=== PATIENT | female | born 1945 | race Caucasian/White ===

== ENCOUNTER 2018-05-04 07:27 | Day surgery (SDC) | payer MEDICARE, BC ==
[2018-05-04] MEDS ORDERED: Lactated Ringers 1,000 ML IV SCH (08:15)
--- NOTE | 2018-05-04 08:24 | PCM.PREANE ---
Preanesthetic Assessment - Anesthesia/Transfusion/Family Hx Anesthesia History: Prior Anesthesia Without Reaction Family History of Anesthesia Reaction: No Transfusion History: No Prior Transfusion(s) Intubation History: Unknown - Review of Systems General: No Symptoms Pulmonary: No Symptoms Cardiovascular: No Symptoms Gastrointestinal: No Symptoms Neurological: No Symptoms Other: Reports: None - Physical Assessment O2 Sat by Pulse Oximetry: 99 Respiratory Rate: 16 Vital Signs: Last Vital Signs Temp 35.6 C 05/04/18 07:46 Pulse 71 05/04/18 07:46 Resp 16 05/04/18 07:46 BP 144/82 H 05/04/18 07:46 Pulse Ox 99 05/04/18 07:46 Height: 1.68 m Weight: 67.585 kg ASA Class: 3 Mental Status: Alert & Oriented x3 Airway Class: Mallampati = 2 Dentition: Reports: Normal Dentition Thyro-Mental Finger Breadths: 3 Mouth Opening Finger Breadths: 3 ROM/Head Extension: Limited/Partial Lungs: Clear to Auscultation, Normal Respiratory Effort Cardiovascular: Regular Rate, Regular Rhythm - Allergies Allergies/Adverse Reactions: Allergies Allergy/AdvReac Type Severity Reaction Status Date / Time quinapril HCl [From Accupril] Allergy Cannot Verified 04/29/18 08:32 Remember - Blood Blood Available: No - Anesthesia Plan Pre-Op Medication Ordered: None - Acknowledgements Anesthesia Type Planned: General Anesthesia Pt an Appropriate Candidate for the Planned Anesthesia: Yes Alternatives and Risks of Anesthesia Discussed w Pt/Guardian: Yes Pt/Guardian Understands and Agrees with Anesthesia Plan: Yes PreAnesthesia Questionnaire HEENT History: Reports: Glaucoma, Impaired Vision, Macular Degeneration, Other ( See Below) Other HEENT History: uses reading glasses, glaucoma rt eye, macular degeneration left eye Cardiovascular History: Reports: High Cholesterol, Hypertension Respiratory History: Reports: None Gastrointestinal History: Reports: None Genitourinary History: Reports: Other (See Below) (mild renal insufficiency) RADIOLOGIC TECHNOLOGY INSTRUCTOR History: Reports: None Musculoskeletal History: Reports: Arthritis, Fracture Other Musculoskeletal History: hx fx rt knee Neurological History: Reports: MS Psychiatric History: Reports: None Endocrine/Metabolic History: Reports: None, Other (See Below) (elevated glucose levels) Hematologic History: Reports: None Immunologic History: Reports: None Oncologic (Cancer) History: Reports: None Dermatologic History: Reports: Other (See Below) Other Dermatologic History: skin tags, seborrheic keratosis, onchomycosis - Past Surgical History Head Surgeries/Procedures: Reports: None HEENT Surgical History: Reports: Cataract Surgery, Tonsillectomy Cardiovascular Surgical History: Reports: None Respiratory Surgical History: Reports: None GI Surgical History: Reports: EGD Female Surgical History: Reports: Hysterectomy, Oophorectomy Male Surgical History: Endocrine Surgical History: Reports: None Musculoskeletal Surgical History: Reports: Carpal Tunnel Other Musculoskeletal Surgeries/Procedures:: Lt carpal tunnel release 04/27/18 under local Oncologic Surgical History: Reports: None - SUBSTANCE USE Smoking Status *Q: Never Smoker Recreational Drug Use History: No - HOME MEDS Home Medications: Home Meds Amitriptyline [Elavil] 10 mg PO BEDTIME 11/06/15 [History] Aspirin [Children's Aspirin] 81 mg PO DAILY 11/06/15 [History] Calcium Carbonate/Vitamin D3 [Calcium 500-Vit D3 200 Tablet] 0.5 tab PO DAILY [History] Gabapentin [Neurontin] 300 mg PO QID 11/06/15 [History] Beta-Carotene(A) W-C & E/Min [Vision Vitamins] 1 tab PO BID 04/27/18 [History] Cholecalciferol (Vitamin D3) [Vitamin D3] 1,000 unit PO DAILY 04/27/18 [History] Cyanocobalamin (Vitamin B-12) [Vitamin B-12] 1,000 mcg PO DAILY 04/27/18 [ History] Fluticasone Propionate [Flonase] 1 - 2 spray NASBOTH BID PRN 04/27/18 [History] Ibuprofen 800 mg PO TID PRN 04/27/18 [History] Lifitegrast [Xiidra] 1 drop EYEBOTH BID 04/27/18 [History] Potassium Chloride 20 meq PO DAILY 04/27/18 [History] Triamterene/Hydrochlorothiazid [Triamterene-HCTZ 37.5-25 MG] 1 cap PO DAILY 05/07 [History] atorvaSTATin [Lipitor] 10 mg PO DAILY 04/27/18 [History] Bio-Tears 1 tab PO BID 04/29/18 [History] - CURRENT (IN HOUSE) MEDS Current Meds: Current Medications Lactated Ringer's (Ringers, Lactated) 1,000 mls @ 125 mls/hr IV ASDIRECTED TASHIA Last Admin: 05/04/18 08:00 Dose: 125 mls/hr
--- NOTE | 2018-05-04 08:39 | PCM.HPR ---
H & P Addendum review - H & P Addendum Review Date of Original H & P: 04/21/18 Date Reviewed: 05/04/18 Time Reviewed: 08:00 Patient was Examined: No Changes
--- NOTE | 2018-05-04 08:41 | PCM.OPNOTE ---
- General Post-Op/Procedure Note Date of Surgery/Procedure: 05/04/18 Condition: Good Free Text/Narrative:: Pre operative Diagnosis: Otitis media with effusion, hearing loss, imbalance Post operative Diagnosis: Otitis media with effusion, hearing loss, imbalance Procedure: Bilateral Myringotomy with Tympanostomy tubes Surgeon: Dana Morales MD Anesthesia: General Anesthesiologist:Serg ARCE Date of procedure: 05/04/2018 Indications: Otitis media with effusion, hearing loss, imbalance Findings: Right ME - serous effusion; L - TM intact , ME - normal Operation Details: An informed consent for the procedure was obtained from parents. A time out was performed and the patient was brought back to the operating room and laid supine on the operating room table. Anesthesia was administered with an LMA. The right ear was addressed first. Cerumen was cleared from the external auditory canal. An anterior inferior myringotomy incision was made in the pars tensa. Findings are as described above. Middle ear effusion was suctioned clear. Middle ear was irrigated with saline. A URIBE tympanostomy tube was placed with an alligator forceps. Ciprodex ear drops were instilled. A cotton wool wall was placed in the monika. The left ear was addressed. Cerumen was cleared from the external auditory canal. Findings are as described above. Specimens: None IV fluids: None Disposition: PACU for recovery Follow up: In 1 week
[2018-05-04] MEDS ORDERED: Lidocaine 2% 5 ML SDV ONE (08:44)
[2018-05-04] MEDS ORDERED: fentaNYL 100 MCG/2 ML SDV ONE (08:45)
[2018-05-04] MEDS ORDERED: Midazolam 1 MG/ML 2 ML SDV ONE (08:45)
[2018-05-04] MEDS ORDERED: Propofol 200 MG/20 ML SDV ONE (08:45)
[2018-05-04] MEDS ORDERED: EPINEPHrine 1 MG/ML SDV ONE ×2 (09:39→09:42)
[2018-05-04] MEDS ORDERED: fentaNYL 100 MCG/2 ML SDV IVPUSH PRN (09:40)
[2018-05-04] MEDS ORDERED: Ciprofloxacin/Dexamethasone 0.3-0.1% Otic Susp 7.5 ML Bottle ONE (09:40)
--- NOTE | 2018-05-04 09:55 | PCM.POSTAN ---
POST ANESTHESIA ASSESSMENT - MENTAL STATUS Mental Status: Alert, Oriented - RESPIRATORY Respiratory Status: Respiratory Rate WNL, Airway Patent, O2 Saturation Stable - CARDIOVASCULAR CV Status: Pulse Rate WNL, Blood Pressure Stable - GASTROINTESTINAL GI Status: No Symptoms - PAIN Pain Score: 0 - POST OP HYDRATION Hydration Status: Adequate & Stable
--- NOTE | 2018-05-04 10:21 | PCM48HPAN ---
Post Anesthesia Note - EVALUATION WITHIN 48HRS OF ANESTHETIC Vital Signs in Normal Range: Yes Patient Participated in Evaluation: Yes Respiratory Function Stable: Yes Airway Patent: Yes Cardiovascular Function Stable: Yes Hydration Status Stable: Yes Pain Control Satisfactory: Yes Nausea and Vomiting Control Satisfactory: Yes Mental Status Recovered: Yes Resp Rate: 9 - COMMENTS/OBSERVATIONS Free Text/Narrative:: no anesthesia problems
[2018-05-04 10:34] VITALS: BP 167/73
== END 2018-05-04 10:44 | disposition home or self-care (01) ==
LOC: MW.SDS 07:27
PROVIDERS: ATTEND Otolaryngology
DX: H65.91 Unspecified nonsuppurative otitis media, right ear (principal); H61.22 Impacted cerumen, left ear; H90.71 Mixed conductive and sensorineural hearing loss, unilateral, right ear, with unrestricted hearing on the contralateral side; I10 Essential (primary) hypertension; E78.00 Pure hypercholesterolemia, unspecified; G35 Multiple sclerosis; Z79.82 Long term (current) use of aspirin; Z79.899 Other long term (current) drug therapy; J30.2 Other seasonal allergic rhinitis; Z88.8 Allergy status to other drugs, medicaments and biological substances
CPT/HCPCS: 69209; 69436; A9270; J0171; J2250; J2704; J3010; J7120